=== PATIENT | male | born 1990 | race Caucasian/White ===

== ENCOUNTER 2022-01-10 00:30 | Emergency (ER) | payer SELFPAY ==
[~2022-01-10] VITALS: Ht 180.3 cm; Wt 100.2 kg
[2022-01-10 00:47] VITALS: BP 133/79
--- NOTE | 2022-01-10 03:14 | NUR ---
PATIENT LEFT WITHOUT BEING SEEN BY DR. GONZALEZ. NO FURTHER CARE PROVIDED FOR PATIENT.
== END 2022-01-10 03:14 | disposition left against medical advice (07) ==
LOC: MED 00:30
DX: T63.441A Toxic effect of venom of bees, accidental (unintentional), initial encounter (principal); M79.89 Other specified soft tissue disorders; Z53.21 Procedure and treatment not carried out due to patient leaving prior to being seen by health care provider; Y92.89 Other specified places as the place of occurrence of the external cause